=== PATIENT | male | born 1960 | race Caucasian/White ===

== ENCOUNTER 2017-02-08 18:27 | Inpatient (IN) | payer BC ==
[~2017-02-08] VITALS: Ht 182.9 cm; Wt 138.6 kg
[2017-02-08] MEDS ORDERED: SODIUM CHLORIDE 0.9% 1000ML 1,000 ML IV STA ×2 (19:00→19:57)
[2017-02-08] MEDS ORDERED: ONDANSETRON HCL INJ 2 MG/ML VIAL IV STA ×2 (19:00→20:39)
[2017-02-08] MEDS ORDERED: PANTOPRAZOLE 40 MG 10ML VIAL IV STA (19:00)
[2017-02-08] MEDS ORDERED: HYDROMORPHONE 1MG/1ML INJ IV STA ×2 (19:00→20:39)
[2017-02-08] MEDS ORDERED: SODIUM CHLORIDE 0.9% 1000ML 1,000 ML ONE ×2 (19:09→20:02)
[2017-02-08] MEDS ORDERED: ONDANSETRON HCL INJ 2 MG/ML VIAL ONE (19:09)
[2017-02-08] MEDS ORDERED: PANTOPRAZOLE 40 MG 10ML VIAL ONE (19:09)
[2017-02-08] MEDS ORDERED: HYDROMORPHONE 1MG/1ML INJ ONE (19:09)
[2017-02-08 19:51] LABS: BASOPHILS # (AUTO) 0.1 (0.0-0.1); BASOPHILS % 0.3 % (0.0-1.0); EOSINOPHILS # (AUTO) 0.1 (0.0-0.4); EOSINOPHILS % 0.3 % (0.0-6.0); HEMATOCRIT 46.4 % (38.2-49.6); HEMOGLOBIN 15.5 g/dL (14.0-18.0); LYMPHOCYTES # (AUTO) 2.1 (1.0-3.2); LYMPHOCYTES % 11.9 % (18.0-39.1); MEAN CORPUSCULAR HEMOGLOBIN 29.4 pg (28-32); MEAN CORPUSCULAR HGB CONC 33.4 g/dL (31-35); MEAN CORPUSCULAR VOLUME 87.9 fL (81-99); MONOCYTES # (AUTO) 0.7 (0.2-0.8); MONOCYTES % 4.3 % (4.4-11.3); NEUTROPHILS # (AUTO) 14.1 (2.1-6.9); PLATELET COUNT 240 x10e3/uL (140-360); RED BLOOD COUNT 5.28 x10e6/uL (4.3-5.7); RED CELL DISTRIBUTION WIDTH 13.6 % (11.7-14.4)
[2017-02-08 20:12] LABS: ALANINE AMINOTRANSFERASE 237 IU/L (0-55); ALBUMIN 4.4 g/dL (3.5-5.0); ALBUMIN/GLOBULIN RATIO 1.3 (0.8-2.0); ALKALINE PHOSPHATASE 258 IU/L (40-150); AMYLASE 3771 U/L (25-125); ANION GAP 15.4 mmol/L (8-16); BLOOD UREA NITROGEN 9 mg/dL (7-26); BUN/CREATININE RATIO 13 (6-25); CALCIUM 9.3 mg/dL (8.4-10.2); CARBON DIOXIDE 23 mmol/L (22-29); CHLORIDE 104 mmol/L (98-107); CREATINE KINASE 48 IU/L (30-200); CREATININE, SERUM 0.71 mg/dL (0.72-1.25); EST GLOMERULAR FILTRATION RATE > 60 ML/MIN (60-); GLUCOSE 127 mg/dL (74-118); POTASSIUM 3.4 mmol/L (3.5-5.1); SODIUM 139 mmol/L (136-145)
[2017-02-08 20:19] LABS: TROPONIN I 0.008 ng/mL (0-0.300)
[2017-02-08] MEDS ORDERED: KCL 20MEQ/.9 SOD CHL 1,000 ML IV ONE (21:00)
[2017-02-08] MEDS: PIPER-TAZ 3.375 GM/NS 50 ML 50 ML IV SCH (22:00)
--- NOTE | 2017-02-08 22:12 | Diagnostic Imaging Report ---
EXAM: CT ABDOMEN AND PELVIS with IV CONTRAST DATE: 02/08/2017 7:57 PM Time stamp on Exam: 2130 hours INDICATION: Abdominal pain, vomiting COMPARISON: None TECHNIQUE: The abdomen and pelvis were scanned using a multidetector helical scanner. Coronal and sagittal reformations were obtained. Routine protocol performed. IV Contrast: 100 cc at 7370 Oral Contrast: Water CTDIvol has been reviewed. It is below the limits set by the Radiation Protocol Committee (RPC). FINDINGS: LOWER THORAX: No consolidations LIVER: No masses. Portal edema. BILIARY: The gallbladder is unremarkable. No ductal dilation. SPLEEN: No masses PANCREAS: Diffusely edematous pancreas with peripancreatic inflammation and unorganized fluid collections. ADRENALS: No nodules KIDNEYS: Symmetric perfusion. No enhancing masses. No hydronephrosis. Indeterminate 2.8 cm cyst superior lateral pole of the right kidney. There are 5 additional cysts throughout the right kidney that are simple fluid, the largest measures 6 cm at the superior pole. Subcentimeter hyperdensities throughout the left kidney are too small to characterize accurately. GI TRACT: No distention, wall thickening or evidence of obstruction. The appendix is not visualized. VESSELS: No abdominal aortic aneurysm. The main portal vein and splenic veins are patent. A nonspecific 7 mm hypodense focus in the proximal right common iliac vein (series 2, image 71). PERITONEUM/RETROPERITONEUM: Unorganized fluid in the upper retroperitoneum. LYMPH NODES: Retroperitoneal lymphadenopathy up to 2.1 cm in short diameter (series 2, image 50). Enlarged right external iliac lymph node up to 1.2 cm in short diameter. Mesenteric lymphadenopathy predominantly around the mesenteric root with the largest lymph node conglomerate measuring proximally 10 x 8 cm. REPRODUCTIVE ORGANS: Unremarkable BLADDER: Unremarkable SOFT TISSUES: Small bilateral fat-containing inguinal hernias. BONES: No suspicious bone lesions. IMPRESSION: 1. Findings consistent with acute edematous interstitial pancreatitis with unorganized peripancreatic fluid collections. 2. Mesenteric and retroperitoneal lymphadenopathy with the largest mesenteric lymph node conglomerate around the mesenteric root measuring up to 10 cm. The primary differential diagnosis is lymphoma, less likely metastatic disease. 3. Nonspecific 7 mm hypodense focus in the proximal right common iliac vein that is indeterminate for partial thrombus or filling defect. 4. Indeterminate cystic lesion measuring 2.8 cm in superior pole of the right kidney, likely a hyperdense cyst. This could be confirmed by ultrasound. Signed by: Dr. Margot Kirby M.D. on 02/08/2017 10:09 PM
[2017-02-08 22:30] LABS: LIPASE > 12000 U/L (8-78)
[2017-02-08 22:33] LABS: BILIRUBIN,URINE NEGATIVE (NEGATIVE); CLARITY,URINE CLEAR (CLEAR); COLOR,URINE YELLOW (YELLOW); KETONES,URINE NEGATIVE (NEGATIVE); LEUKOCYTE ESTERASE ,URINE NEGATIVE (NEGATIVE); NITRITE,URINE NEGATIVE (NEGATIVE); PROTEIN,URINE DIPSTICK NEGATIVE (NEGATIVE); URINE UROBILINOGEN 0.2 mg/dL (0.2 - 1)
[2017-02-08] MEDS: SODIUM CHLORIDE 0.9% 1000ML 1,000 ML IV SCH (22:39)
[2017-02-08 22:59] LABS: BACTERIA,URINE RARE /HPF; EPITHELIAL CELLS,URINE RARE /LPF; RBC,URINE 0-5 /HPF (0-5); WBC,URINE (MAN) 0-5 /HPF (0-5)
[2017-02-09] VITALS: BP 118/84
[2017-02-09] MEDS: ONDANSETRON HCL INJ 2 MG/ML VIAL IV PRN ×2 (00:10→07:22)
[2017-02-09] MEDS: HYDROMORPHONE 1MG/1ML INJ IV PRN ×7 (00:10→22:22)
[2017-02-09 02:50] LABS: CHOL/HDL RATIO 5.2 (3.9-4.7)
[2017-02-09] MEDS: PIPER-TAZ 3.375 GM/NS 50 ML 50 ML IV SCH ×4 (03:00→20:58)
[2017-02-09] MEDS ORDERED: IOPAMIDOL 370 MG/ML 200 ML INFUS..BTL INJ ONE (03:32)
[2017-02-09 04:40] VITALS: BP 161/82
[2017-02-09 07:50] LABS: ALANINE AMINOTRANSFERASE 220 IU/L (0-55); ALBUMIN 3.6 g/dL (3.5-5.0); ALBUMIN/GLOBULIN RATIO 1.2 (0.8-2.0); ALKALINE PHOSPHATASE 209 IU/L (40-150); AMYLASE 1116 U/L (25-125); ANION GAP 10.8 mmol/L (8-16); BLOOD UREA NITROGEN 8 mg/dL (7-26); BUN/CREATININE RATIO 10 (6-25); CALCIUM 8.4 mg/dL (8.4-10.2); CARBON DIOXIDE 27 mmol/L (22-29); CHLORIDE 105 mmol/L (98-107); CREATININE, SERUM 0.77 mg/dL (0.72-1.25); EST GLOMERULAR FILTRATION RATE > 60 ML/MIN (60-); GLUCOSE 170 mg/dL (74-118); POTASSIUM 3.8 mmol/L (3.5-5.1); SODIUM 139 mmol/L (136-145)
[2017-02-09] MEDS: PANTOPRAZOLE 40 MG 10ML VIAL IV SCH ×2 (07:50→17:00)
[2017-02-09] MEDS: FAMOTIDINE 20 MG/2 ML VIAL IV SCH ×2 (07:50→17:00)
[2017-02-09] MEDS: SODIUM CHLORIDE 0.9% 1000ML 1,000 ML IV SCH ×4 (07:50→22:17)
[2017-02-09 08:04] LABS: INR 0.87; PROTHROMBIN TIME 12.3 seconds (11.9-14.5)
[2017-02-09 08:05] LABS: PARTIAL THROMBOPLASTIN TIME 28.9 seconds (23.8-35.5)
[2017-02-09 08:12] LABS: BASOPHILS % 0.1 % (0.0-1.0); HEMOGLOBIN 14.9 g/dL (14.0-18.0); LYMPHOCYTES # (AUTO) 0.7 (1.0-3.2); LYMPHOCYTES % 5.2 % (18.0-39.1); MEAN CORPUSCULAR HEMOGLOBIN 29.2 pg (28-32); MEAN CORPUSCULAR HGB CONC 33.1 g/dL (31-35); MEAN CORPUSCULAR VOLUME 88.1 fL (81-99); MONOCYTES # (AUTO) 0.7 (0.2-0.8); MONOCYTES % 4.8 % (4.4-11.3); NEUTROPHILS # (AUTO) 12.4 (2.1-6.9); NEUTROPHILS % 89.4 % (38.7-80.0); PLATELET COUNT 237 x10e3/uL (140-360); RED BLOOD COUNT 5.11 x10e6/uL (4.3-5.7); RED CELL DISTRIBUTION WIDTH 13.9 % (11.7-14.4)
[2017-02-09 08:18] LABS: CREATINE KINASE 33 IU/L (30-200)
[2017-02-09 08:24] LABS: TROPONIN I < 0.001 ng/mL (0-0.300)
[2017-02-09 08:46] VITALS: BP 165/79
[2017-02-09 09:30] LABS: LIPASE 2159 U/L (8-78)
--- NOTE | 2017-02-09 09:57 | History and Physical ---
PRIMARY CARE PHYSICIAN: Dr. Dow. CHIEF COMPLAINT: Abdominal pain. HISTORY OF PRESENT ILLNESS: This is a 56-year-old man with history of hypertension, now developing abdominal pain for the past week. Now it is worsening in the epigastric region with nausea and vomiting, prompting a visit to the hospital. He has a history of pancreatitis and significant lymphadenopathy. He is admitted for further evaluation and management. PAST MEDICAL HISTORY: Hypertension. PAST SURGICAL HISTORY: Meniscus repair. ALLERGIES: PER ELECTRONIC MEDICAL RECORD. FAMILY HISTORY: Father had skin cancer and at age 65. Paternal grandparents also had cancer, unknown type, in their 70s and 80s. SOCIAL HISTORY: The patient is . He has 1 child. No alcohol or illicits. He works at a [employer] on the [employer]. MEDICATIONS: Per electronic medical record. REVIEW OF SYSTEMS: Denies any dizziness or chest pain. PHYSICAL EXAMINATION VITAL SIGNS: Reviewed. GENERAL: A tired-appearing man resting in bed. HEENT: Anicteric. Pupils are responsive to light. No oral lesions. CARDIOVASCULAR: Normal S1 and S2. LUNGS: Moderate breath sounds. No wheezing. ABDOMEN: Soft. He has no tenderness in the lower abdomen, but the epigastrium is tender with mild voluntary guarding. EXTREMITIES: No edema or calf tenderness. NEUROLOGIC: Alert and oriented times 3, moving all extremities. SKIN: Dry. PSYCHIATRIC: Normal affect. LABS: Reviewed. MEDICATIONS: Reviewed. ASSESSMENT AND PLAN: This is a 56-year-old man. 1. Acute pancreatitis. IV fluids. He has elevated LFTs. Will obtain an ultrasound of the gallbladder. The lipase is more than 12,000. 2. Acute transaminitis. Obtain ultrasound to rule out gallstones. 3. Abdominal lymphadenopathy, which is significant. He has retroperitoneal and mesenteric lymphadenopathy. Largest mesenteric lymph node conglomerate around the mesentery measuring 10 cm. Will get radiology for biopsy and consult oncology. 4. Abdominal pain. He is currently on medications. 5. Hypokalemia. Replace and recheck. 6. Obesity. Body mass index 39.3. Will screen for diabetes with hemoglobin A1c. His LDL is 114 and triglycerides 174. Will obtain a TSH. 7. Prophylaxis: Will use Lovenox and Pepcid. 8. Disposition: Follow closely. Continue with his IV Zosyn and IV fluids. Will increase the fluids to 200 mL an hour. Consultations as noted above. Job#: [id number] MH
[2017-02-09] MEDS: FENTANYL 50 MCG/HR PATCH TOP SCH (10:37)
[2017-02-09 12:41] VITALS: BP 167/82
[2017-02-09 16:00] VITALS: BP 154/85
[2017-02-09 16:54] LABS: CREATINE KINASE MB 0.5 ng/mL (0.00-5.00); TROPONIN I 0.018 ng/mL (0-0.300)
[2017-02-09] MEDS: ENOXAPARIN SOD INJ 40 MG/0.4 ML SYR SC SCH (17:00)
[2017-02-09 20:00] VITALS: BP 156/79
[2017-02-10] VITALS: BP 166/82
[2017-02-10] MEDS: SODIUM CHLORIDE 0.9% 1000ML 1,000 ML IV SCH ×3 (01:27→08:47)
[2017-02-10] MEDS: PIPER-TAZ 3.375 GM/NS 50 ML 50 ML IV SCH ×4 (02:59→21:07)
[2017-02-10] MEDS: HYDROMORPHONE 1MG/1ML INJ IV PRN ×6 (03:00→21:29)
[2017-02-10 04:00] VITALS: BP 138/88
--- NOTE | 2017-02-10 06:24 | Progress Note ---
DATE: February 10, 2017 TIME: 5:50 a.m. OVERNIGHT: No events. Less abdominal pain. REVIEW OF SYSTEMS: Denies any dizziness. PHYSICAL EXAMINATION VITAL SIGNS: Have been reviewed. GENERAL: A tired-appearing man resting in bed. HEENT: Anicteric. CARDIOVASCULAR: Normal S1 and S2. LUNGS: Moderate breath sounds. No wheezing. ABDOMEN: Soft and nondistended. Mild tenderness in the epigastrium. EXTREMITIES: No edema or calf tenderness. NEUROLOGICAL: Alert and oriented times 3. Moving all extremities. SKIN: Dry. PSYCHIATRIC: Flat affect. LABS: Reviewed. MEDICATIONS: Reviewed. ASSESSMENT: A 56-year-old man with: 1. Acute pancreatitis. 2. Acute transaminitis. 3. Abdominal lymphadenopathy with mesenteric and retroperitoneal lymphadenopathy. 4. Abdominal pain. 5. Hypokalemia. 6. Obesity: Body mass index 39.3. Hemoglobin A1c is 4.9, LDL 143 and triglycerides 174. PLAN 1. Lipase improving now to 2000 from more than 12,000. 2. Continue rehydration. 3. Leukocytosis, improving. Obtain labs this morning. 4. All cultures negative to date. 5. Left axillary lymph node excisional biopsy is planned at some point. 6. Continue Lovenox and Pepcid. Job#: [id number] UT
[2017-02-10 08:11] VITALS: BP 162/74
[2017-02-10] MEDS: PANTOPRAZOLE 40 MG 10ML VIAL IV SCH ×2 (08:29→17:09)
[2017-02-10] MEDS: FAMOTIDINE 20 MG/2 ML VIAL IV SCH ×2 (08:29→17:09)
[2017-02-10 08:36] LABS: BASOPHILS # (AUTO) 0.1 (0.0-0.1); BASOPHILS % 0.3 % (0.0-1.0); EOSINOPHILS # (AUTO) 0.2 (0.0-0.4); EOSINOPHILS % 0.8 % (0.0-6.0); HEMOGLOBIN 13.9 g/dL (14.0-18.0); LYMPHOCYTES # (AUTO) 1.3 (1.0-3.2); LYMPHOCYTES % 5.9 % (18.0-39.1); MEAN CORPUSCULAR HEMOGLOBIN 29.5 pg (28-32); MEAN CORPUSCULAR HGB CONC 33.1 g/dL (31-35); MEAN CORPUSCULAR VOLUME 89.2 fL (81-99); MONOCYTES # (AUTO) 1.5 (0.2-0.8); MONOCYTES % 6.8 % (4.4-11.3); NEUTROPHILS # (AUTO) 18.6 (2.1-6.9); NEUTROPHILS % 85.7 % (38.7-80.0); PLATELET COUNT 186 x10e3/uL (140-360); RED BLOOD COUNT 4.71 x10e6/uL (4.3-5.7); RED CELL DISTRIBUTION WIDTH 14.4 % (11.7-14.4)
[2017-02-10 09:00] LABS: ALANINE AMINOTRANSFERASE 154 IU/L (0-55); ALBUMIN 3.2 g/dL (3.5-5.0); ALKALINE PHOSPHATASE 170 IU/L (40-150); AMYLASE 497 U/L (25-125); ANION GAP 11.3 mmol/L (8-16); BILIRUBIN,DIRECT 0.8 mg/dL (0.0-5.0); BLOOD UREA NITROGEN 11 mg/dL (7-26); BUN/CREATININE RATIO 15 (6-25); CARBON DIOXIDE 28 mmol/L (22-29); CHLORIDE 110 mmol/L (98-107); CREATININE, SERUM 0.72 mg/dL (0.72-1.25); EST GLOMERULAR FILTRATION RATE > 60 ML/MIN (60-); GLUCOSE 110 mg/dL (74-118); LIPASE 577 U/L (8-78); POTASSIUM 3.3 mmol/L (3.5-5.1); SODIUM 146 mmol/L (136-145)
[2017-02-10] MEDS ORDERED: POTASSIUM CHLORIDE 20MEQ/100ML 100 ML IV ONE (09:15)
[2017-02-10] MEDS: SODIUM CHLORIDE 0.45% 1,000 ML IV SCH ×4 (09:58→23:58)
--- NOTE | 2017-02-10 10:04 | Diagnostic Imaging Report ---
PROCEDURE: CT scan of the chest WITH intravenous contrast, using standard protocol. TECHNIQUE: The chest was scanned utilizing a multidetector helical scanner from the lung apex through the level of the adrenal glands after the IV administration of 100 cc of Isovue 370. Coronal and sagittal multiplanar reformations were obtained. COMPARISON: CT abdomen and pelvis with contrast 02/08/2017. INDICATIONS: LYMPHOMA, PANCREATITIS FINDINGS: Lines/tubes: None. Lungs and Airways: Linear and reticular opacities in the lung bases, right greater than left, compatible with atelectasis. The upper lobes are comparatively well aerated. No parenchymal mass lesion or bronchiectasis. 5 mm groundglass nodule in the apical segment of the right upper lobe seen on series 3 image 15. No additional pulmonary nodules. Pleura: Trace bilateral pleural effusions, left larger than right. No pneumothorax. Heart and mediastinum: The visualized portions of the thyroid gland are normal. No axillary, hilar, or mediastinal lymphadenopathy. Normal heart size. No pericardial effusion. Great vessel origins are normal in caliber and configuration. Pulmonary outflow tract is of normal caliber. Soft tissues: No focal soft tissue abnormality. Abdomen: Trace intrahepatic biliary ductal dilatation is again noted. The pancreatic tail is partially visualized with edema and adjacent fat stranding. For further description of abdominopelvic findings refer to the report for CT scan of the abdomen and pelvis 02/08/2017. Bones: No osseous destructive lesions. IMPRESSION: Trace reactive bilateral pleural effusions with subsegmental atelectasis in the lower lobes. Indeterminate 5 mm groundglass nodule in the right lung apex should be assessed for stability by CT scan of the chest without contrast in one year given the patient's reported history of lymphoma. No thoracic lymphadenopathy. Dictated by: Antoine Moura M.D. on 02/10/2017 at 10:12 Electronically approved by: Antoine Moura M.D. on 02/10/2017 at 10:12
[2017-02-10] MEDS ORDERED: IOPAMIDOL 370 MG/ML 200 ML INFUS..BTL INJ ONE (10:54)
[2017-02-10 12:06] VITALS: BP 139/64
[2017-02-10] MEDS: ENOXAPARIN SOD INJ 40 MG/0.4 ML SYR SC SCH (17:09)
[2017-02-10 20:00] VITALS: BP 143/64
[2017-02-10 21:23] VITALS: BP 143/72
[2017-02-11] VITALS (7 sets, daily range): BP systolic 150–175; BP diastolic 68–85
[2017-02-11] MEDS ORDERED: ACETAMINOPHEN 1000 MG/100 ML IV PRN (02:45)
[2017-02-11] MEDS: PIPER-TAZ 3.375 GM/NS 50 ML 50 ML IV SCH ×4 (03:05→20:15)
[2017-02-11] MEDS: SODIUM CHLORIDE 0.45% 1,000 ML IV SCH ×3 (05:17→17:57)
--- NOTE | 2017-02-11 06:14 | Diagnostic Imaging Report ---
CHEST SINGLE (PORTABLE), 02/11/2017 6:00 AM Technique: CHEST SINGLE (PORTABLE) Comparison: 02/10/2017 Clinical history: Fever Findings: See Impression Impression: Limited portable view with motion artifact 1. Cardiomediastinal silhouette within normal limits for technique 2. Mild bibasilar atelectasis or infection with trace effusions. Signed by: Dr Albania Hdez MD on 02/11/2017 6:11 AM
--- NOTE | 2017-02-11 06:24 | Discharge Summary ---
PRINCIPAL DIAGNOSES 1. Acute pancreatitis. 2. Acute transaminitis. 3. Abdominal lymphadenopathy with mesenteric and retroperitoneal lymphadenopathy with aggregate lymph nodes as big as 10 cm. 4. Abdominal pain. 5. Hypokalemia. 6. Obesity. Body mass index 39.3. Hemoglobin A1c 4.9, LDL 143 and triglycerides 174. SECONDARY DIAGNOSIS: Hypertension. CHIEF COMPLAINT: Abdominal pain. HISTORY OF PRESENT ILLNESS: A 56-year-old man developing abdominal pain. Refer to the H and P for further details. HOSPITAL COURSE: The patient was found to have acute pancreatitis. Lipase was more than 12,000. He also has acute transaminitis. He had abdominal lymphadenopathy with mesenteric and retroperitoneal lymphadenopathy with conglomerate as big as 10 cm of lymph nodes. Radiology was consulted and oncology consulted for biopsy. Uric acid level was 5. The patient requested to be transferred down to the [facility] for further management. His lipase has improved to 577 from more than 12,000. His LFTs have been slowly improving. His TSH was normal. His hemoglobin A1c was 4.9. His leukocytosis has worsened from 17,000 now up to 21,000. His culture is negative. Urine culture is negative. He has been receiving IV Zosyn antibiotic. Hemodynamically, the patient's systolic blood pressure has been in the 150s and heart rate is 18-20, pulse 90-96, and his temperature is 100.5. His oxygen has been 97% on 2 L nasal cannula. He is on Lovenox prophylactically. He is currently appropriate for transition to the [facility] at this time. DISCHARGE MEDICATIONS: Per electronic medical records. Medications currently are: 1. IV Zosyn. 2. Normal saline at 200 mL an hour. 3. Dilaudid 1 mg q.2 h. p.r.n. 4. Pepcid 20 mg IV q.12 h. 5. Lovenox 40 mg subcutaneously daily. 6. Protonix 40 mg IV b.i.d. 7. Fentanyl patch 50 mcg every 3 days. 8. Zofran 4 mg IV q.4 h. p.r.n. 9. Acetaminophen 1000 mg IV q.6 h. p.r.n. CONDITION ON DISCHARGE: Stable. MARIA DEL ROSARIO LOPEZ MD Job#: [id number] RI
[2017-02-11] MEDS: HYDROMORPHONE 1MG/1ML INJ IV PRN (06:39)
[2017-02-11 07:09] LABS: BASOPHILS % 0.2 % (0.0-1.0); EOSINOPHILS # (AUTO) 0.1 (0.0-0.4); EOSINOPHILS % 0.6 % (0.0-6.0); HEMATOCRIT 39.1 % (38.2-49.6); HEMOGLOBIN 12.7 g/dL (14.0-18.0); LYMPHOCYTES # (AUTO) 1.1 (1.0-3.2); LYMPHOCYTES % 6.2 % (18.0-39.1); MEAN CORPUSCULAR HEMOGLOBIN 28.9 pg (28-32); MEAN CORPUSCULAR HGB CONC 32.5 g/dL (31-35); MEAN CORPUSCULAR VOLUME 89.1 fL (81-99); MONOCYTES # (AUTO) 1.5 (0.2-0.8); MONOCYTES % 8.5 % (4.4-11.3); NEUTROPHILS # (AUTO) 15.1 (2.1-6.9); NEUTROPHILS % 83.8 % (38.7-80.0); PLATELET COUNT 179 x10e3/uL (140-360); RED BLOOD COUNT 4.39 x10e6/uL (4.3-5.7); RED CELL DISTRIBUTION WIDTH 14.3 % (11.7-14.4)
[2017-02-11 07:22] LABS: ALANINE AMINOTRANSFERASE 95 IU/L (0-55); ALBUMIN 2.9 g/dL (3.5-5.0); ALBUMIN/GLOBULIN RATIO 0.9 (0.8-2.0); ALKALINE PHOSPHATASE 130 IU/L (40-150); AMYLASE 121 U/L (25-125); ANION GAP 11.7 mmol/L (8-16); BILIRUBIN,DIRECT 0.8 mg/dL (0.0-5.0); BLOOD UREA NITROGEN 12 mg/dL (7-26); BUN/CREATININE RATIO 18 (6-25); CARBON DIOXIDE 27 mmol/L (22-29); CHLORIDE 108 mmol/L (98-107); CREATININE, SERUM 0.68 mg/dL (0.72-1.25); EST GLOMERULAR FILTRATION RATE > 60 ML/MIN (60-); GLUCOSE 116 mg/dL (74-118); LIPASE 97 U/L (8-78); SODIUM 144 mmol/L (136-145)
[2017-02-11 07:28] LABS: POTASSIUM 2.7 mmol/L (3.5-5.1)
[2017-02-11] MEDS: FAMOTIDINE 20 MG/2 ML VIAL IV SCH ×3 (09:10→20:15)
[2017-02-11] MEDS: PANTOPRAZOLE 40 MG 10ML VIAL IV SCH ×3 (09:10→20:15)
[2017-02-11 09:46] LABS: BAND NEUTROPHILS % (MANUAL) 10 %; LYMPHOCYTES % (MANUAL) 3 % (19-48); MONOCYTES % (MANUAL) 6 % (3.4-9.0); NEUTROPHILS % (MANUAL) 81 % (40-74); PLATELET ESTIMATE ADEQUATE; PLATELET MORPHOLOGY COMMENT FEW LARGE; RBC MORPHOLOGY COMMENT NORMAL
[2017-02-11] MEDS ORDERED: POTASSIUM CHLORIDE 20MEQ/100ML 100 ML IV ONE ×3 (10:00→15:00)
--- NOTE | 2017-02-11 10:15 | Consultation ---
DATE OF CONSULTATION: February 09, 2017 Dario Oseguera is a 56-year-old white male who has been referred to ct for evaluation of possible lymphoma. The patient had presented with abdominal pain. Subsequently, was found to have a high amylase and lipase. As part of the workup, had a CT scan of the abdomen that showed the patient to have a 10-cm mass highly suggestive of lymphoma. Subsequently, referred to ct for further evaluation and treatment. SOCIAL HISTORY: Noncontributory. FAMILY HISTORY: Noncontributory. ALLERGIES: NONE. MEDICATIONS: At this time: 1. Zosyn. 2. IV fluids consisting of normal saline. 3. Hydromorphone. 4. Ondansetron. 5. Protonix. 6. Lovenox. REVIEW OF SYSTEMS HEENT: Normal. CARDIAC: Normal. RESPIRATORY: Normal. GI: Pancreatitis. : Normal. MUSCULOSKELETAL: Normal. SKIN AND BREASTS: Normal. NEUROENDOCRINE: Normal. HEMATOLOGICAL/ONCOLOGICAL: A 10 cm intra-abdominal mass highly suggestive of lymphoma. PHYSICAL EXAMINATION GENERAL: A large-built male. No palpable adenopathy except for left axillary node, 2 x 2 cm. Firm in consistency and freely of mobile. HEART: Within normal limits. LUNGS: Clear. ABDOMEN: Obese. There is no hepatosplenomegaly. RECTAL: Deferred. CENTRAL NERVOUS SYSTEM: Essentially normal. EXTREMITIES: Essentially normal. LABS: Shows a hemoglobin of 15.5, hematocrit 46.4, white count 17,000, and platelets are reported at 240,000. Chemistry shows a sodium of 139, potassium 3.4, chloride 104, CO2 23, BUN 9, creatinine 0.7, glucose 127, total protein is 9.3, bilirubin high at 3.3, SGOT high at 152, SGPT high at 237, alkaline phosphatase high at 258. Amylase 3771 and lipase more than 12,000. The patient's imaging consists of a CT scan of the abdomen and pelvis. The findings were consistent with acute interstitial pancreatitis with unorganized peripancreatic fluid collection. Mesenteric and retroperitoneal lymphadenopathy with the largest mesenteric lymph node around the mesenteric root measuring up to 10 cm. Nonspecific 7 mm hypodense focus in the proximal right common iliac vein that was indeterminate for partial thrombosis or filling defect. Indeterminate cystic lesion measuring 2.8 cm in the superior pole of the right kidney. Possibly a hyperdense cyst. The gallbladder was reported unremarkable. No other lab investigations are available at this time for review. IMPRESSION 1. Leukemoid reaction. 2. Pancreatitis. 3. Hyperglycemia. 4. High liver function tests. 5. History of hyperlipidemia. 6. Hypokalemia (3.4). 7. Possible lymphoma. 8. Right kidney cyst. PLAN, COMMENTS AND SUGGESTIONS: Instead of a needle biopsy of this lesion, I strongly suggest the patient to have a left axillary node excisional biopsy as the needle biopsy may not be concluded enough for the type of lymphoma. Index of suspicion is very high that this is lymphoma. At the present time, the priority goes to the acute pancreatic, which he has the hypokalemia, which he has. I have discussed this with Dr. Con Gold, as well as with the patient's . As part of further workup, since this patient is in the hospital, a CT of the chest was also done. There were bilateral pleural effusions with subsegmental atelectasis in the lower lobe. Indeterminate 5 mm ground-glass nodule in the right apex. Heart and mediastinum was reported normal. No hilar or mediastinal adenopathy. It was reported there was no axillary adenopathy. However, by my own physical exam, there is a 2 cm left axillary lymph node. I have come to know that the patient's works at [employer], and she would like the patient to be transferred to [facility], which I do welcome. I have all the confidence that he will get the best of the care anywhere. Thank you very much for allowing me to participate in management of this patient during this hospitalization. A biopsy diagnosis, however, is essential preferably an excisional biopsy of the left axillary lymph node as opposed to a needle biopsy of this large intra-abdominal mass. LDH is suggested. Beta-2 microglobulins are suggested. If confirmed to be lymphoma, a bone marrow biopsy, as well as a baseline PET scan and echocardiogram. This was discussed at length with the patient and the family, as well as Dr. Con Gold. Job#: [id number] RI cc:SAMUEL REID MD
[2017-02-11] MEDS: ONDANSETRON HCL INJ 2 MG/ML VIAL IV PRN (14:51)
[2017-02-11] MEDS: ENOXAPARIN SOD INJ 40 MG/0.4 ML SYR SC SCH (17:57)
[2017-02-12] VITALS: BP 162/75
[2017-02-12] MEDS: PIPER-TAZ 3.375 GM/NS 50 ML 50 ML IV SCH ×4 (02:52→20:50)
[2017-02-12 04:00] VITALS: BP 162/79
[2017-02-12] MEDS: SODIUM CHLORIDE 0.45% 1,000 ML IV SCH (05:53)
[2017-02-12 07:19] LABS: BASOPHILS % 0.3 % (0.0-1.0); EOSINOPHILS # (AUTO) 0.2 (0.0-0.4); EOSINOPHILS % 1.3 % (0.0-6.0); HEMATOCRIT 37.3 % (38.2-49.6); HEMOGLOBIN 12.4 g/dL (14.0-18.0); LYMPHOCYTES # (AUTO) 1.3 (1.0-3.2); LYMPHOCYTES % 8.1 % (18.0-39.1); MEAN CORPUSCULAR HEMOGLOBIN 29.5 pg (28-32); MEAN CORPUSCULAR HGB CONC 33.2 g/dL (31-35); MEAN CORPUSCULAR VOLUME 88.8 fL (81-99); MONOCYTES # (AUTO) 1.5 (0.2-0.8); MONOCYTES % 9.3 % (4.4-11.3); NEUTROPHILS # (AUTO) 12.7 (2.1-6.9); NEUTROPHILS % 79.9 % (38.7-80.0); PLATELET COUNT 200 x10e3/uL (140-360); RED CELL DISTRIBUTION WIDTH 13.9 % (11.7-14.4)
[2017-02-12 07:48] LABS: ALANINE AMINOTRANSFERASE 62 IU/L (0-55); ALBUMIN 2.5 g/dL (3.5-5.0); ALBUMIN/GLOBULIN RATIO 0.7 (0.8-2.0); ALKALINE PHOSPHATASE 116 IU/L (40-150); AMYLASE 34 U/L (25-125); ANION GAP 12.2 mmol/L (8-16); BLOOD UREA NITROGEN 13 mg/dL (7-26); BUN/CREATININE RATIO 20 (6-25); CALCIUM 8.6 mg/dL (8.4-10.2); CARBON DIOXIDE 29 mmol/L (22-29); CHLORIDE 109 mmol/L (98-107); CREATININE, SERUM 0.64 mg/dL (0.72-1.25); EST GLOMERULAR FILTRATION RATE > 60 ML/MIN (60-); GLUCOSE 101 mg/dL (74-118); LIPASE 36 U/L (8-78); POTASSIUM 3.2 mmol/L (3.5-5.1); SODIUM 147 mmol/L (136-145)
--- NOTE | 2017-02-12 08:07 | Progress Note ---
DATE: February 12, 2017 TIME: 6:50 a.m. OVERNIGHT: Patient remained in the hospital due to no bed accessibility at the [facility]. REVIEW OF SYSTEMS: Denies any dizziness or chest pain. PHYSICAL EXAMINATION VITAL SIGNS: Reviewed. GENERAL: A tired-appearing man resting in bed. HEENT: Anicteric. CARDIOVASCULAR: Normal S1 and S2. LUNGS: Moderate breath sounds. ABDOMEN: Soft and nondistended. Mild tenderness in the epigastrium. EXTREMITIES: No edema. SKIN: Dry. PSYCHIATRIC: Normal affect. LABS: Reviewed. MEDICATIONS: Reviewed. ASSESSMENT: A 56-year-old man with: 1. Acute pancreatitis. 2. Acute transaminitis. 3. Abdominal lymphadenopathy with mesenteric and retroperitoneal lymphadenopathy. 4. Abdominal pain. 5. Severe hypokalemia. 6. Obesity: Body mass index 39.3. Hemoglobin A1c 4.9, LDL 143 and triglycerides 174. PLAN 1. Continue to monitor lipase level. 2. The patient has received fluids. 3. All cultures are negative to date. 4. Will need lymph node biopsy, which will likely be done at the [facility] downtown. 5. Lipase had improved to 97 yesterday. 6. Severe hypokalemia. Treat today. Labs are pending. Job#: [id number] ABDOULAYE
[2017-02-12] MEDS: FAMOTIDINE 20 MG/2 ML VIAL IV SCH ×2 (09:00→20:50)
[2017-02-12] MEDS: PANTOPRAZOLE 40 MG 10ML VIAL IV SCH ×2 (09:00→20:50)
[2017-02-12] MEDS: FENTANYL 50 MCG/HR PATCH TOP SCH (09:45)
[2017-02-12 12:00] VITALS: BP 152/74
[2017-02-12 16:26] VITALS: BP 151/77
[2017-02-12] MEDS: ENOXAPARIN SOD INJ 40 MG/0.4 ML SYR SC SCH (17:58)
[2017-02-12 20:00] VITALS: BP 134/64
[2017-02-13 00:14] VITALS: BP 169/78
[2017-02-13] MEDS: SODIUM CHLORIDE 0.45% 1,000 ML IV SCH ×3 (00:28→18:27)
[2017-02-13] MEDS: PIPER-TAZ 3.375 GM/NS 50 ML 50 ML IV SCH ×4 (03:25→20:30)
[2017-02-13 04:12] VITALS: BP 174/85
[2017-02-13 07:08] VITALS: BP 135/89
[2017-02-13 08:28] LABS: AMYLASE 19 U/L (25-125); LIPASE 14 U/L (8-78)
[2017-02-13] MEDS: PANTOPRAZOLE 40 MG 10ML VIAL IV SCH ×2 (08:55→20:30)
[2017-02-13] MEDS: FAMOTIDINE 20 MG/2 ML VIAL IV SCH ×2 (08:55→20:30)
[2017-02-13 12:11] VITALS: BP 141/77
[2017-02-13 16:12] VITALS: BP 159/91
[2017-02-13] MEDS: ENOXAPARIN SOD INJ 40 MG/0.4 ML SYR SC SCH (17:31)
[2017-02-13] MEDS ORDERED: ACETAMINOPHEN 325 MG TAB PO PRN (17:45)
[2017-02-13 20:00] VITALS: BP 147/82
[2017-02-14] VITALS: BP 158/75
[2017-02-14] MEDS: PIPER-TAZ 3.375 GM/NS 50 ML 50 ML IV SCH ×4 (03:16→20:30)
[2017-02-14 04:00] VITALS: BP 149/80
[2017-02-14 07:34] LABS: BASOPHILS # (AUTO) 0.1 (0.0-0.1); BASOPHILS % 0.5 % (0.0-1.0); EOSINOPHILS # (AUTO) 0.2 (0.0-0.4); EOSINOPHILS % 1.3 % (0.0-6.0); HEMATOCRIT 37.2 % (38.2-49.6); HEMOGLOBIN 12.6 g/dL (14.0-18.0); LYMPHOCYTES % 5.6 % (18.0-39.1); MEAN CORPUSCULAR HEMOGLOBIN 29.2 pg (28-32); MEAN CORPUSCULAR HGB CONC 33.9 g/dL (31-35); MEAN CORPUSCULAR VOLUME 86.1 fL (81-99); MONOCYTES # (AUTO) 1.5 (0.2-0.8); MONOCYTES % 8.9 % (4.4-11.3); NEUTROPHILS # (AUTO) 14.3 (2.1-6.9); NEUTROPHILS % 82.1 % (38.7-80.0); PLATELET COUNT 237 x10e3/uL (140-360); RED BLOOD COUNT 4.32 x10e6/uL (4.3-5.7); RED CELL DISTRIBUTION WIDTH 13.2 % (11.7-14.4)
[2017-02-14 08:03] LABS: ALANINE AMINOTRANSFERASE 30 IU/L (0-55); ALBUMIN 2.1 g/dL (3.5-5.0); ALBUMIN/GLOBULIN RATIO 0.6 (0.8-2.0); ALKALINE PHOSPHATASE 88 IU/L (40-150); AMYLASE 19 U/L (25-125); ANION GAP 8.7 mmol/L (8-16); BLOOD UREA NITROGEN 8 mg/dL (7-26); BUN/CREATININE RATIO 13 (6-25); CALCIUM 7.7 mg/dL (8.4-10.2); CARBON DIOXIDE 31 mmol/L (22-29); CHLORIDE 102 mmol/L (98-107); CREATININE, SERUM 0.63 mg/dL (0.72-1.25); EST GLOMERULAR FILTRATION RATE > 60 ML/MIN (60-); GLUCOSE 121 mg/dL (74-118); LIPASE 15 U/L (8-78); SODIUM 139 mmol/L (136-145)
[2017-02-14 08:08] LABS: POTASSIUM 2.7 mmol/L (3.5-5.1)
[2017-02-14 08:23] VITALS: BP 140/73
[2017-02-14 08:24] LABS: BAND NEUTROPHILS % (MANUAL) 5 %; EOSINOPHILS % (MANUAL) 2 % (0-7); LYMPHOCYTES % (MANUAL) 2 % (19-48); MONOCYTES % (MANUAL) 6 % (3.4-9.0); NEUTROPHILS % (MANUAL) 85 % (40-74)
[2017-02-14 08:25] LABS: PLATELET ESTIMATE ADEQUATE; PLATELET MORPHOLOGY COMMENT NORMAL; RBC MORPHOLOGY COMMENT NORMAL
[2017-02-14] MEDS: FAMOTIDINE 20 MG/2 ML VIAL IV SCH ×2 (09:46→20:30)
[2017-02-14] MEDS: PANTOPRAZOLE 40 MG 10ML VIAL IV SCH ×2 (09:46→20:30)
[2017-02-14 09:59] LABS: ALANINE AMINOTRANSFERASE 30 IU/L (0-55); ALBUMIN 2.1 g/dL (3.5-5.0); ALBUMIN/GLOBULIN RATIO 0.6 (0.8-2.0); ALKALINE PHOSPHATASE 88 IU/L (40-150); ANION GAP 8.9 mmol/L (8-16); BLOOD UREA NITROGEN 8 mg/dL (7-26); BUN/CREATININE RATIO 12 (6-25); CALCIUM 7.8 mg/dL (8.4-10.2); CARBON DIOXIDE 30 mmol/L (22-29); CHLORIDE 102 mmol/L (98-107); CREATININE, SERUM 0.65 mg/dL (0.72-1.25); EST GLOMERULAR FILTRATION RATE > 60 ML/MIN (60-); GLUCOSE 155 mg/dL (74-118); SODIUM 138 mmol/L (136-145)
[2017-02-14 10:01] LABS: POTASSIUM 2.9 mmol/L (3.5-5.1)
[2017-02-14] MEDS ORDERED: POTASSIUM CHLORIDE 20 MEQ TAB CR PO ONE (11:00)
[2017-02-14] MEDS: SODIUM CHLORIDE 0.45% 1,000 ML IV SCH (11:15)
[2017-02-14 12:09] VITALS: BP 131/75
--- NOTE | 2017-02-14 15:13 | Progress Note ---
DATE: February 13, 2017 TIME: 9 a.m. OVERNIGHT: No events. REVIEW OF SYSTEMS: Denies any dizziness. VITAL SIGNS: Reviewed. PHYSICAL EXAMINATION GENERAL: A tired-appearing man resting in bed. HEENT: Anicteric. CARDIOVASCULAR: Normal S1 and S2. LUNGS: Moderate breath sounds. ABDOMEN: Soft and nondistended. EXTREMITIES: No edema or calf tenderness. NEUROLOGIC: Alert and oriented times 3. Moving all extremities. SKIN: Dry. PSYCHIATRIC: Flat affect. LABS: Reviewed. MEDICATIONS: Reviewed. ASSESSMENT: A 56-year-old man. 1. Acute pancreatitis. 2. Acute transaminitis. 3. Abdominal lymphadenopathy with mesenteric and retroperitoneal lymphadenopathy. 4. Abdominal pain. 5. Severe hypokalemia. 6. Obesity: Body mass index 39.3. Glycosylated hemoglobin 4.9, low-density lipoprotein 143. PLAN 1. Continue monitoring. 2. Continue fluids. 3. Will obtain biopsy of the axillary lymph node if the patient remains here. 4. [facility], but no beds are there at this time. 5. Continue current care. Job#: [id number]
--- NOTE | 2017-02-14 15:17 | Progress Note ---
DATE: February 14, 2017 TIME: 12 noon. OVERNIGHT: No pain. REVIEW OF SYSTEMS: Denies any dizziness. VITAL SIGNS: Reviewed. PHYSICAL EXAMINATION GENERAL: A tired-appearing man resting in bed. HEENT: Anicteric. CARDIOVASCULAR: Normal S1 and S2. LUNGS: Moderate breath sounds. ABDOMEN: Soft and nondistended. Mild tenderness in the epigastrium. EXTREMITIES: No edema. SKIN: Dry. PSYCHIATRIC: Normal affect. LABS: Reviewed. MEDICATIONS: Reviewed. ASSESSMENT: A 56-year-old man. 1. Acute pancreatitis. 2. Acute transaminitis. 3. Abdominal lymphadenopathy with mesenteric and retroperitoneal lymphadenopathy. 4. Abdominal pain. 5. Severe hypokalemia. 6. Obesity: Body mass index 39.3. Glycosylated hemoglobin 4.9, low-density lipoprotein 143, triglycerides 174. 7. Hypokalemia. PLAN 1. Continue current care. 2. Plan for biopsy of the axillary lymph node on Thursday if the patient remains here. 3. Leukocytosis persists, likely secondary to his lymphadenopathy and possible malignancy. 4. Normocytic anemia has remained stable. 5. Severe hypokalemia. Replace and recheck. 6. Continue Pepcid. 7. DVT prophylaxis with Lovenox. 8. Most recent lipase level was normal at 15. Pancreatitis has resolved. Job#: [id number]
[2017-02-14 16:00] VITALS: BP 154/90
[2017-02-14] MEDS: ENOXAPARIN SOD INJ 40 MG/0.4 ML SYR SC SCH (16:38)
[2017-02-14 20:00] VITALS: BP 159/81
[2017-02-15] VITALS: BP 156/88
[2017-02-15] MEDS: PIPER-TAZ 3.375 GM/NS 50 ML 50 ML IV SCH ×2 (02:59→08:14)
[2017-02-15] MEDS: SODIUM CHLORIDE 0.45% 1,000 ML IV SCH (02:59)
[2017-02-15 04:00] VITALS: BP 158/82
[2017-02-15 07:00] VITALS: BP 147/83
[2017-02-15 07:08] LABS: BASOPHILS # (AUTO) 0.1 (0.0-0.1); BASOPHILS % 0.6 % (0.0-1.0); EOSINOPHILS # (AUTO) 0.3 (0.0-0.4); EOSINOPHILS % 1.7 % (0.0-6.0); HEMATOCRIT 38.9 % (38.2-49.6); LYMPHOCYTES # (AUTO) 1.5 (1.0-3.2); LYMPHOCYTES % 8.8 % (18.0-39.1); MEAN CORPUSCULAR HGB CONC 33.4 g/dL (31-35); MEAN CORPUSCULAR VOLUME 86.6 fL (81-99); MONOCYTES # (AUTO) 1.5 (0.2-0.8); MONOCYTES % 8.8 % (4.4-11.3); NEUTROPHILS # (AUTO) 12.8 (2.1-6.9); NEUTROPHILS % 76.5 % (38.7-80.0); PLATELET COUNT 299 x10e3/uL (140-360); RED BLOOD COUNT 4.49 x10e6/uL (4.3-5.7); RED CELL DISTRIBUTION WIDTH 13.2 % (11.7-14.4)
--- NOTE | 2017-02-15 07:33 | Diagnostic Imaging Report ---
EXAMINATION: Chest, CHEST 2 VIEWS INDICATION: Chest pain COMPARISON: Portable chest 02/11/2017 FINDINGS: LINES: None. Heart: Normal cardiac silhouette. Vascular: The pulmonary vasculature is within normal limits. Atherosclerotic calcifications of the aortic arch. Mediastinum: No mediastinal, hilar, or axillary mass or lymphadenopathy. Lungs: No parenchymal mass. No focal consolidation. Pleura: Small left pleural effusion. No pneumothorax. Bones: No acute osseous abnormality. Degenerative changes of the thoracic spine. Soft tissues: Normal. Impression: Small left pleural effusion. Signed by: Dr. Asif Bruce M.D. on 02/15/2017 7:30 AM
[2017-02-15] MEDS: FAMOTIDINE 20 MG/2 ML VIAL IV SCH (08:14)
[2017-02-15] MEDS: PANTOPRAZOLE 40 MG 10ML VIAL IV SCH (08:14)
[2017-02-15 08:20] LABS: ANION GAP 13.3 mmol/L (8-16); BLOOD UREA NITROGEN 8 mg/dL (7-26); BUN/CREATININE RATIO 13 (6-25); CALCIUM 8.4 mg/dL (8.4-10.2); CARBON DIOXIDE 28 mmol/L (22-29); CHLORIDE 101 mmol/L (98-107); CREATININE, SERUM 0.62 mg/dL (0.72-1.25); EST GLOMERULAR FILTRATION RATE > 60 ML/MIN (60-); GLUCOSE 94 mg/dL (74-118); POTASSIUM 3.3 mmol/L (3.5-5.1); SODIUM 139 mmol/L (136-145)
[2017-02-15 08:42] LABS: MAGNESIUM 1.9 MG/DL (1.3-2.1); PHOSPHORUS 1.2 MG/DL (2.3-4.7)
[2017-02-15 10:38] LABS: BAND NEUTROPHILS % (MANUAL) 38 %; LYMPHOCYTES % (MANUAL) 15 % (19-48); MONOCYTES % (MANUAL) 4 % (3.4-9.0); NEUTROPHILS % (MANUAL) 43 % (40-74); PLATELET ESTIMATE ADEQUATE; PLATELET MORPHOLOGY COMMENT NORMAL; RBC MORPHOLOGY COMMENT NORMAL
--- NOTE | 2017-02-15 22:55 | Discharge Summary ---
PRINCIPAL DIAGNOSES 1. Acute pancreatitis. 2. Acute transaminitis. 3. Abdominal lymphadenopathy with mesenteric and retroperitoneal lymphadenopathy as well as axillary lymphadenopathy. 4. Abdominal pain. 5. Severe hypokalemia. 6. Obesity. Body mass index 39.3. Hemoglobin A1c 4.9, LDL 143. SECONDARY DIAGNOSIS: Hypertension. CHIEF COMPLAINT: Abdominal pain. HISTORY OF PRESENT ILLNESS: A 56-year-old man developing abdominal pain. Please refer to the H and P for further details. HOSPITAL COURSE: Patient found to have acute pancreatitis, lipase more than 12,000, this has completely resolved. He received IV fluids. Patient also had lymphadenopathy of the retroperitoneum, mesentery, and axillary region, large long lymph nodes as large as 10 cm lymph node, conglomerate. Radiology consulted for biopsy, this has not been done yet, it will be done in the [facility]. He has uric acid of 5. He had which have also improved, hemoglobin A1c was 4.9. Patient with worsening leukocytosis, but that improved with antibiotics. All cultures remain negative. WBC was 16.7 today likely secondary to his enlarged lymph nodes. Patient is comfortable and doing better and currently appropriate for discharge. He will be transferred to the [facility] per the patient's family request. CONDITION ON DISCHARGE: Fair. DISCHARGE LOCATION: [facility]. MARIA DEL ROSARIO LOPEZ MD Job#: [id number]
== END 2017-02-15 09:17 | disposition short-term general hospital (02) | DRG 440 ==
LOC: ER 18:27 → ERHOLD 23:06 → MED/SURG 23:09
PROVIDERS: ADMIT Internal Medicine; ATTEND Internal Medicine
DX: K85.90 Acute pancreatitis without necrosis or infection, unspecified (principal); E11.65 Type 2 diabetes mellitus with hyperglycemia; R74.0 Nonspecific elevation of levels of transaminase and lactic acid dehydrogenase [LDH]; R59.1 Generalized enlarged lymph nodes; E66.01 Morbid (severe) obesity due to excess calories; Z68.39 Body mass index [BMI] 39.0-39.9, adult; E87.6 Hypokalemia; E86.0 Dehydration; I10 Essential (primary) hypertension; D72.823 Leukemoid reaction; R74.8 Abnormal levels of other serum enzymes; N28.1 Cyst of kidney, acquired; R10.9 Unspecified abdominal pain
CPT/HCPCS: 36415; 71010; 71020; 71260; 74177; 80048; 80053; 80061; 80076; 81001; 82150; 82550; 82553; 83036; 83605; 83615; 83690; 83735; 84100; 84443; 84484; 84550; 85025; 85610; 85730; 86301; 87086; 87400; 93005; 96360; 96361; 96365; 96367; 96374; 96375; 96376; 99284; J1170; J1650; J2405; J2543; J3480; J7030; Q9967